=== PATIENT | female | born 1940 | race Caucasian/White ===

== ENCOUNTER 2020-05-20 07:11 | Emergency (ER) | payer OTHER ==
[2020-05-20 07:29] VITALS: BP 128/80; PULSE 90; TEMP 98.9; BMI 29.6
[2020-05-20] MEDS ORDERED: ONDANSETRON 4 MG TABLET PO ONE ×2 (07:59→08:00)
== END 2020-05-20 08:58 | disposition home or self-care (01) ==
LOC: JER 07:11
DX: R11.0 Nausea (principal); M79.10 Myalgia, unspecified site; Z20.822 Contact with and (suspected) exposure to COVID-19
CPT/HCPCS: 71046-TC-FY; 99284-25; C9803; U0003

== ENCOUNTER 2020-05-22 07:42 | Inpatient (IN) | payer OTHER ==
[2020-05-22] MEDS ORDERED: ACETAMINOPHEN INJECTION 100 ML IVPB ONE (08:06)
[2020-05-22] MEDS ORDERED: DEXAMETHASONE SOD PHOSPHATE 4 MG/1 ML VIAL IVPUSH ONE ×2 (08:29→13:28)
[2020-05-22] MEDS ORDERED: ONDANSETRON 4 MG/2 ML VIAL IVPUSH ONE (08:29)
[2020-05-22] MEDS ORDERED: CEFTRIAXONE 1,000 MG in DEXTROSE 5%-WATER - 50 ML IVPB ONE (08:40)
[2020-05-22] MEDS ORDERED: AZITHROMYCIN IVPB 500 MG in DEXTROSE 5%-WATER - 250 ML IVPB ONE (08:40)
[2020-05-22] MEDS ORDERED: ONDANSETRON 4 MG/2 ML VIAL ONE (08:45)
[2020-05-22] MEDS ORDERED: DEXAMETHASONE SOD PHOSPHATE 4 MG/1 ML VIAL ONE ×2 (08:45→15:15)
[2020-05-22] MEDS ORDERED: EPINEPHrine/PF 1 MG/1 ML (1:1,000) AMPULE ONE (08:46)
[2020-05-22] MEDS ORDERED: FAMOTIDINE 20 MG/50 ML IVPB 20 MG/50 ML MG IVPB ONE ×2 (08:49→09:10)
[2020-05-22] MEDS ORDERED: ACETAMINOPHEN 1000 MG/100 ML VIAL (NON FORMULARY) IVPB PRN (08:53)
[2020-05-22 09:09] LABS: BASO % 0.9 % (0-2.0); HEMATOCRIT 41.3 % (32.4-45.2); HEMOGLOBIN 13.6 GM/dL (10.7-15.3); LYMPH % 33.7 % (8-40); MCH 29.1 pg (25.7-33.7); MEAN CELL VOLUME 88.4 fl (80-96); MEAN PLT VOLUME 9.4 fl (7.5-11.1); MONO % 13.8 % (3.8-10.2); NEUT % 51.6 % (42.8-82.8); PLATELET COUNT 142 K/MM3 (134-434); RBC 4.67 M/mm3 (3.60-5.2); RDW 14.8 % (11.6-15.6); WHITE BLOOD COUNT 2.8 K/mm3 (4.0-10.0)
[2020-05-22] MEDS ORDERED: AZITHROMYCIN IVPB 500 MG/250 ML BAG IVPB ONE (09:09)
[2020-05-22 09:17] LABS: INR 1.21 (0.83-1.09); PROTHROMBIN TIME (PATIENT) 14.6 SEC (9.7-13.0)
[2020-05-22 09:19] LABS: ACTIVATED PTT 35.9 SECONDS (25.2-36.5)
[2020-05-22 09:29] LABS: CHLORIDE 103 mmol/L (98-107); POTASSIUM 4.3 mmol/L (3.5-5.1); SODIUM 134 mmol/L (136-145)
[2020-05-22 09:31] LABS: CALCIUM 8.3 mg/dL (8.5-10.1)
[2020-05-22 09:32] LABS: ALBUMIN 3.4 g/dl (3.4-5.0); ANION GAP 6 MMOL/L (8-16); BLOOD UREA NITROGEN 16.2 mg/dL (7-18); CO2 25 mmol/L (21-32); GLUCOSE,RANDOM 113 mg/dL (74-106)
[2020-05-22 09:35] LABS: CREATININE 1.6 mg/dL (0.55-1.3); SGOT/AST 33 U/L (15-37); SGPT/ALT 18 U/L (13-61)
[2020-05-22 09:36] LABS: BILIRUBIN,TOTAL 0.5 mg/dL (0.2-1)
[2020-05-22 09:37] LABS: TOT PROT 7.9 g/dl (6.4-8.2)
[2020-05-22 09:38] LABS: ALK PHOS 50 U/L (45-117)
[2020-05-22] MEDS ORDERED: LACTATED RINGERS SOLUTION 1000 ML INFUS.BAG IV STA (09:42)
[2020-05-22 11:28] LABS: LDH 388 U/L (84-246)
[2020-05-22] MEDS ORDERED: ACETAMINOPHEN 325 MG TABLET (FP) PO PRN (13:26)
[2020-05-22] MEDS ORDERED: REMDESIVIR 200 MG in SODIUM CHLORIDE 210 ML IVPB ONE (15:00)
[2020-05-22 18:42] LABS: URINE APPEARANCE CLEAR; URINE BILIRUBIN NEGATIVE (NEGATIVE); URINE COLOR YELLOW; URINE GLUCOSE (UA) NEGATIVE (NEGATIVE); URINE KETONE NEGATIVE (NEGATIVE); URINE LEUK ESTERASE NEGATIVE (NEGATIVE); URINE NITRITE NEGATIVE (NEGATIVE); URINE PROTEIN TRACE (NEGATIVE); URINE UROBILINOGEN 0.2 mg/dL (0.2-1.0)
[2020-05-22] MEDS ORDERED: HEPARIN NA (PORCINE) 5,000 UNITS/ML 1ML VIAL ONE (18:57)
[2020-05-22] MEDS: HEPARIN NA (PORCINE) 5,000 UNITS/ML 1ML VIAL SQ SCH (18:59)
[2020-05-23] MEDS: HEPARIN NA (PORCINE) 5,000 UNITS/ML 1ML VIAL SQ SCH ×3 (02:12→18:26)
[2020-05-23 03:26] VITALS: BMI 28.8
[2020-05-23] MEDS: CHOLECALCIFEROL (VIT D3) 1,000 UNIT (25 MCG) TABLET PO SCH (10:56)
[2020-05-23] MEDS: DEXAMETHASONE 4 MG TABLET (FP) PO SCH (10:56)
[2020-05-23 11:21] LABS: BASO % 0.2 % (0-2.0); HEMOGLOBIN 13.4 GM/dL (10.7-15.3); LYMPH % 20.3 % (8-40); MCH 29.3 pg (25.7-33.7); MCHC 33.6 g/dl (32.0-36.0); MEAN CELL VOLUME 87.2 fl (80-96); MEAN PLT VOLUME 9.5 fl (7.5-11.1); MONO % 6.8 % (3.8-10.2); NEUT % 72.7 % (42.8-82.8); PLATELET COUNT 170 K/MM3 (134-434); RBC 4.58 M/mm3 (3.60-5.2); RDW 14.6 % (11.6-15.6)
[2020-05-23 11:45] LABS: POTASSIUM 4.1 mmol/L (3.5-5.1)
[2020-05-23 11:47] LABS: ALBUMIN 3.1 g/dl (3.4-5.0); CALCIUM 8.5 mg/dL (8.5-10.1)
[2020-05-23 11:48] LABS: BLOOD UREA NITROGEN 19.7 mg/dL (7-18)
[2020-05-23 11:50] LABS: CREATININE 1.2 mg/dL (0.55-1.3)
[2020-05-23 11:51] LABS: PHOSPHOROUS 3.1 mg/dL (2.5-4.9)
[2020-05-23 11:52] LABS: BILIRUBIN,TOTAL 0.4 mg/dL (0.2-1); TOT PROT 7.5 g/dl (6.4-8.2)
[2020-05-23] MEDS: ASCORBIC ACID 500 MG TABLET (FP) PO SCH ×2 (14:23→21:23)
[2020-05-23] MEDS: REMDESIVIR 100 MG in SODIUM CHLORIDE 230 ML IVPB SCH (15:01)
[2020-05-24] MEDS: HEPARIN NA (PORCINE) 5,000 UNITS/ML 1ML VIAL SQ SCH ×3 (01:57→17:39)
[2020-05-24] MEDS: ASCORBIC ACID 500 MG TABLET (FP) PO SCH ×2 (11:13→21:28)
[2020-05-24] MEDS: DEXAMETHASONE 4 MG TABLET (FP) PO SCH (11:13)
[2020-05-24] MEDS: CHOLECALCIFEROL (VIT D3) 1,000 UNIT (25 MCG) TABLET PO SCH (11:13)
[2020-05-24] MEDS: REMDESIVIR 100 MG in SODIUM CHLORIDE 230 ML IVPB SCH (13:41)
[2020-05-24] MEDS: ALPRAZolam 0.25 MG TABLET PO PRN (15:33)
[2020-05-25] MEDS: HEPARIN NA (PORCINE) 5,000 UNITS/ML 1ML VIAL SQ SCH ×3 (01:24→18:05)
[2020-05-25 09:08] LABS: BASO % 0.2 % (0-2.0); HEMATOCRIT 36.7 % (32.4-45.2); HEMOGLOBIN 12.3 GM/dL (10.7-15.3); LYMPH % 17.5 % (8-40); MCH 29.4 pg (25.7-33.7); MCHC 33.5 g/dl (32.0-36.0); MEAN CELL VOLUME 87.5 fl (80-96); MEAN PLT VOLUME 9.5 fl (7.5-11.1); MONO % 16.4 % (3.8-10.2); NEUT % 65.9 % (42.8-82.8); PLATELET COUNT 223 K/MM3 (134-434); RBC 4.19 M/mm3 (3.60-5.2); WHITE BLOOD COUNT 3.5 K/mm3 (4.0-10.0)
[2020-05-25 09:45] LABS: ALBUMIN 2.7 g/dl (3.4-5.0); BILIRUBIN,TOTAL 0.4 mg/dL (0.2-1); BLOOD UREA NITROGEN 22.5 mg/dL (7-18); CALCIUM 8.1 mg/dL (8.5-10.1); CREATININE 0.8 mg/dL (0.55-1.3); POTASSIUM 4.4 mmol/L (3.5-5.1); TOT PROT 6.7 g/dl (6.4-8.2)
[2020-05-25] MEDS: CHOLECALCIFEROL (VIT D3) 1,000 UNIT (25 MCG) TABLET PO SCH (10:22)
[2020-05-25] MEDS: DEXAMETHASONE 4 MG TABLET (FP) PO SCH (10:22)
[2020-05-25] MEDS: REMDESIVIR 100 MG in SODIUM CHLORIDE 230 ML IVPB SCH (10:22)
[2020-05-25] MEDS: ALPRAZolam 0.25 MG TABLET PO PRN (10:22)
[2020-05-25] MEDS: ASCORBIC ACID 500 MG TABLET (FP) PO SCH ×2 (10:22→22:15)
[2020-05-25] MEDS ORDERED: ACETAMINOPHEN 500 MG TABLET (FP) PO PRN (16:25)
[2020-05-25] MEDS: FAMOTIDINE 20 MG TABLET PO SCH (22:15)
[2020-05-26] MEDS: HEPARIN NA (PORCINE) 5,000 UNITS/ML 1ML VIAL SQ SCH ×2 (01:55→09:21)
[2020-05-26] MEDS: CHOLECALCIFEROL (VIT D3) 1,000 UNIT (25 MCG) TABLET PO SCH (09:12)
[2020-05-26] MEDS: DEXAMETHASONE 4 MG TABLET (FP) PO SCH (09:13)
[2020-05-26] MEDS: ASCORBIC ACID 500 MG TABLET (FP) PO SCH (09:14)
[2020-05-26] MEDS: FAMOTIDINE 20 MG TABLET PO SCH (09:14)
[2020-05-26] MEDS: ALPRAZolam 0.25 MG TABLET PO PRN (09:15)
[2020-05-26] MEDS: REMDESIVIR 100 MG in SODIUM CHLORIDE 230 ML IVPB SCH (11:11)
[2020-05-26 16:12] VITALS: BP 145/79; PULSE 87; TEMP 98
== END 2020-05-26 16:47 | disposition home health service (06) | DRG 177 ==
LOC: JER 07:42 → JERBED 12:50 → J5S 20:17
PROVIDERS: ADMIT Internal Medicine; ATTEND Internal Medicine
PROC: XW13325 Transfusion of Convalescent Plasma (Nonautologous) into Peripheral Vein, Percutaneous Approach, New Technology Group 5 (ICD-10-PCS; principal; 2020-05-23)
PROC: XW033E5 Introduction of Remdesivir Anti-infective into Peripheral Vein, Percutaneous Approach, New Technology Group 5 (ICD-10-PCS; 2020-05-23)
DX: U07.1 COVID-19 (principal); J12.82 Pneumonia due to coronavirus disease 2019; A08.39 Other viral enteritis; I10 Essential (primary) hypertension; F41.9 Anxiety disorder, unspecified; I95.9 Hypotension, unspecified
CPT/HCPCS: 36415; 36430; 71045-TC-FY; 80053; 81003; 82728; 83605; 83615; 83735; 84100; 84484; 85025; 85379; 85610; 85730; 86140; 86769; 86850; 86900; 86901; 87040; 87086; 87804; 93005; 93010; 99285-25; C9399; C9803; J0131; J1644; P9017; U0003

== ENCOUNTER 2020-12-14 21:58 | Emergency (ER) | payer OTHER ==
[2020-12-14 22:08] VITALS: BP 153/83; PULSE 78; TEMP 98; BMI 28.8
== END 2020-12-15 01:01 | disposition home or self-care (01) ==
LOC: JER 21:58
DX: S60.211A Contusion of right wrist, initial encounter (principal); Y99.9 Unspecified external cause status
CPT/HCPCS: 99281-25

== ENCOUNTER 2024-02-24 17:34 | Inpatient (IN) | payer OTHER ==
[2024-02-24] MEDS ORDERED: ACETAMINOPHEN INJECTION 100 ML ONE (18:30)
[2024-02-24] MEDS: ACETAMINOPHEN 1000 MG/100 ML BAG IVPB ONE (18:42)
[2024-02-24 18:47] LABS: HEMATOCRIT 39.5 % (32.4-45.2); HEMOGLOBIN 13.3 GM/dL (10.7-15.3); MCH 30.2 pg (25.7-33.7); MCHC 33.5 g/dl (32.0-36.0); MEAN CELL VOLUME 90.1 fl (80-96); MEAN PLT VOLUME 8.6 fl (7.5-11.1); PLATELET COUNT 119 10^3/uL (134-434); RBC 4.39 M/mm3 (3.60-5.2); RDW 14.8 % (11.6-15.6); WHITE BLOOD COUNT 6.5 K/mm3 (4.0-10.0)
[2024-02-24 19:09] LABS: INR 1.13 (0.83-1.09); PROTHROMBIN TIME (PATIENT) 12.9 SEC (9.7-13.0)
[2024-02-24 19:12] LABS: ACTIVATED PTT 39.3 SECONDS (25.2-36.5)
[2024-02-24 19:18] LABS: ALBUMIN 3.3 g/dl (3.4-5.0); BLOOD UREA NITROGEN 20.4 mg/dL (7-18)
[2024-02-24 19:21] LABS: CREATININE 1.6 mg/dL (0.55-1.3)
[2024-02-24 19:22] LABS: BILIRUBIN,TOTAL 0.7 mg/dL (0.2-1); TOT PROT 7.2 g/dl (6.4-8.2)
[2024-02-24] MEDS ORDERED: CEFTRIAXONE 1 G/50 ML PREMIX 50 ML IVPB ONE (19:24)
[2024-02-24] MEDS ORDERED: AZITHROMYCIN IVPB 500 MG/250 ML BAG IVPB ONE (19:24)
[2024-02-24 20:06] LABS: ANISOCYTOSIS 0; MACROCYTOSIS 0
[2024-02-24] MEDS ORDERED: guaiFENesin 200 MG/10 ML 10 ML UNIT-DOSE CUPS ONE (20:11)
[2024-02-24] MEDS: AZITHROMYCIN IVPB 500 MG in DEXTROSE 5%-WATER - 250 ML IVPB ONE (20:19)
[2024-02-24] MEDS: guaiFENesin 200 MG/10 ML 10 ML UNIT-DOSE CUPS PO ONE (20:20)
[2024-02-24] MEDS: SODIUM CHLORIDE 0.9% 500 ML INFUS.BAG IV ONE (20:20)
[2024-02-24] MEDS ORDERED: HEPARIN NA (PORCINE) 5,000 UNITS/ML 1ML VIAL ONE (21:38)
[2024-02-24] MEDS: SODIUM CHLORIDE 1,000 ML IV SCH (21:47)
[2024-02-24] MEDS: HEPARIN NA (PORCINE) 5,000 UNITS/ML 1ML VIAL SQ SCH (22:15)
[2024-02-25] MEDS: guaiFENesin 200 MG/10 ML 10 ML UNIT-DOSE CUPS PO PRN (01:55)
[2024-02-25 02:12] VITALS: BMI 28.3
[2024-02-25 03:54] LABS: PH,URINE 5.5 (5.0-8.0); URINE APPEARANCE CLEAR; URINE BILIRUBIN NEGATIVE (NEGATIVE); URINE COLOR YELLOW; URINE GLUCOSE (UA) NEGATIVE (NEGATIVE); URINE KETONE NEGATIVE (NEGATIVE); URINE LEUK ESTERASE NEGATIVE (NEGATIVE); URINE NITRITE NEGATIVE (NEGATIVE); URINE PROTEIN TRACE (NEGATIVE); URINE UROBILINOGEN 0.2 mg/dL (0.2-1.0)
[2024-02-25 05:01] LABS: HYALINE CASTS 3.01 /uL (0-3.1); URINE BACTERIA 14.1 /uL (0-1359); URINE RBC 31.5 /uL (0-23.9); URINE WBC 28.3 /uL (0-25.8)
[2024-02-25] MEDS: ACETAMINOPHEN 1000 MG/100 ML BAG IVPB PRN (07:07)
[2024-02-25 09:16] LABS: HEMATOCRIT 36.8 % (32.4-45.2); MCH 29.7 pg (25.7-33.7); MCHC 32.7 g/dl (32.0-36.0); MEAN CELL VOLUME 90.9 fl (80-96); MEAN PLT VOLUME 9.4 fl (7.5-11.1); PLATELET COUNT 113 10^3/uL (134-434); RBC 4.06 M/mm3 (3.60-5.2); RDW 15.1 % (11.6-15.6); WHITE BLOOD COUNT 5.6 K/mm3 (4.0-10.0)
[2024-02-25 09:26] LABS: POTASSIUM 3.9 mmol/L (3.5-5.1)
[2024-02-25 09:28] LABS: CALCIUM 8.2 mg/dL (8.5-10.1)
[2024-02-25 09:29] LABS: BLOOD UREA NITROGEN 16.6 mg/dL (7-18); MAGNESIUM 1.9 mg/dL (1.8-2.4)
[2024-02-25 09:34] LABS: CREATININE 1.2 mg/dL (0.55-1.3)
[2024-02-25] MEDS: CEFTRIAXONE 1 G/50 ML PREMIX 50 ML IVPB SCH (09:53)
[2024-02-25] MEDS: AZITHROMYCIN IVPB 500 MG/250 ML BAG IVPB SCH (09:53)
[2024-02-25] MEDS: NAPH,MB-DB/K PH,MBDB POWDER PACKET PO ONE (16:45)
[2024-02-25] MEDS: ALBUTEROL SO4 HFA INHALER IH PRN (21:19)
[2024-02-25] MEDS: ALPRAZolam 0.25 MG TABLET PO PRN (21:19)
[2024-02-25] MEDS: ATENOLOL 50 MG TABLET (FP) PO SCH (21:19)
[2024-02-25] MEDS ORDERED: FAMOTIDINE 20 MG TABLET PO SCH (22:00)
[2024-02-26] MEDS: ALBUTEROL SO4 0.083% IH SOL 2.5 MG/3 ML VIAL.NEB. NEB PRN (05:06)
[2024-02-26 08:43] LABS: HEMATOCRIT 33.5 % (32.4-45.2); HEMOGLOBIN 10.9 GM/dL (10.7-15.3); MCH 29.7 pg (25.7-33.7); MCHC 32.6 g/dl (32.0-36.0); MEAN CELL VOLUME 91.2 fl (80-96); MEAN PLT VOLUME 9.5 fl (7.5-11.1); PLATELET COUNT 123 10^3/uL (134-434); RBC 3.68 M/mm3 (3.60-5.2); RDW 15.6 % (11.6-15.6); WHITE BLOOD COUNT 4.6 K/mm3 (4.0-10.0)
[2024-02-26 09:02] LABS: POTASSIUM 3.6 mmol/L (3.5-5.1)
[2024-02-26 09:04] LABS: ALBUMIN 2.7 g/dl (3.4-5.0); CALCIUM 7.8 mg/dL (8.5-10.1)
[2024-02-26 09:05] LABS: BLOOD UREA NITROGEN 9.7 mg/dL (7-18)
[2024-02-26 09:08] LABS: CREATININE 0.8 mg/dL (0.55-1.3); PHOSPHOROUS 1.7 mg/dL (2.5-4.9)
[2024-02-26 09:09] LABS: BILIRUBIN,TOTAL 0.7 mg/dL (0.2-1); TOT PROT 6.1 g/dl (6.4-8.2)
[2024-02-26] MEDS: LISINOPRIL 10 MG TABLET PO SCH (09:25)
[2024-02-26] MEDS: FAMOTIDINE 20 MG TABLET PO SCH (09:25)
[2024-02-26] MEDS: amLODIPine BESYLATE 10 MG TABLET (FP) PO SCH (09:26)
[2024-02-26] MEDS ORDERED: ACETAMINOPHEN 325 MG TABLET (FP) PO PRN (16:52)
[2024-02-26] MEDS: ACETAMINOPHEN 325 MG TABLET (FP) PO PRN (16:58)
[2024-02-27] MEDS: NAPH,MB-DB/K PH,MBDB POWDER PACKET PO SCH (21:20)
[2024-02-27] MEDS: ALPRAZolam 0.25 MG TABLET PO PRN (23:58)
[2024-02-28 08:33] LABS: HEMATOCRIT 33.6 % (32.4-45.2); HEMOGLOBIN 10.8 GM/dL (10.7-15.3); MCH 29.3 pg (25.7-33.7); MCHC 32.2 g/dl (32.0-36.0); MEAN CELL VOLUME 91.2 fl (80-96); MEAN PLT VOLUME 9.3 fl (7.5-11.1); PLATELET COUNT 242 10^3/uL (134-434); RBC 3.68 M/mm3 (3.60-5.2); RDW 15.3 % (11.6-15.6); WHITE BLOOD COUNT 4.2 K/mm3 (4.0-10.0)
[2024-02-28 08:44] LABS: POTASSIUM 3.9 mmol/L (3.5-5.1)
[2024-02-28 08:58] LABS: CALCIUM 8.6 mg/dL (8.5-10.1)
[2024-02-28 08:59] LABS: ALBUMIN 2.9 g/dl (3.4-5.0)
[2024-02-28 09:00] LABS: BLOOD UREA NITROGEN 6.2 mg/dL (7-18)
[2024-02-28 09:04] LABS: BILIRUBIN,TOTAL 0.6 mg/dL (0.2-1); CREATININE 0.7 mg/dL (0.55-1.3); TOT PROT 6.5 g/dl (6.4-8.2)
[2024-02-28 10:03] LABS: ANISOCYTOSIS 0; HELMET CELLS 0; HOWELL-JOLLY BODIES 0; MACROCYTOSIS 0; OVALOCYTE 0; ROULEAU 0; SICKELED CELLS 0; TARGET CELLS 0; TEAR DROP CELLS 0; TOXIC GRANULATION 0
[2024-02-28] MEDS: ALBUTEROL SO4 0.083% IH SOL 2.5 MG/3 ML VIAL.NEB. NEB SCH (17:30)
[2024-02-29 08:38] LABS: BASO % 0.6 % (0-2.0); EOS % 1.6 % (0-4.5); HEMATOCRIT 35.6 % (32.4-45.2); HEMOGLOBIN 11.5 GM/dL (10.7-15.3); LYMPH % 33.9 % (8-40); MCH 29.5 pg (25.7-33.7); MCHC 32.4 g/dl (32.0-36.0); MEAN PLT VOLUME 8.7 fl (7.5-11.1); MONO % 12.3 % (3.8-10.2); NEUT % 51.6 % (42.8-82.8); PLATELET COUNT 344 10^3/uL (134-434); RBC 3.91 M/mm3 (3.60-5.2); RDW 15.3 % (11.6-15.6); WHITE BLOOD COUNT 4.6 K/mm3 (4.0-10.0)
[2024-02-29 08:54] LABS: POTASSIUM 4.3 mmol/L (3.5-5.1)
[2024-02-29 08:59] LABS: BLOOD UREA NITROGEN 7.7 mg/dL (7-18); MAGNESIUM 2.1 mg/dL (1.8-2.4)
[2024-02-29 09:02] LABS: CREATININE 0.8 mg/dL (0.55-1.3)
[2024-02-29 09:03] LABS: BILIRUBIN,TOTAL 0.6 mg/dL (0.2-1); TOT PROT 7.1 g/dl (6.4-8.2)
[2024-02-29 09:53] LABS: ANISOCYTOSIS 0; MACROCYTOSIS 0
[2024-03-01 09:49] LABS: HEMATOCRIT 34.3 % (32.4-45.2); HEMOGLOBIN 11.4 GM/dL (10.7-15.3); MCH 29.8 pg (25.7-33.7); MCHC 33.4 g/dl (32.0-36.0); MEAN CELL VOLUME 89.3 fl (80-96); PLATELET COUNT 354 10^3/uL (134-434); RBC 3.84 M/mm3 (3.60-5.2); RDW 15.3 % (11.6-15.6)
[2024-03-01 10:02] LABS: POTASSIUM 4.7 mmol/L (3.5-5.1)
[2024-03-01 10:24] LABS: CALCIUM 9.4 mg/dL (8.5-10.1)
[2024-03-01 10:25] LABS: ALBUMIN 3.1 g/dl (3.4-5.0); BLOOD UREA NITROGEN 8.9 mg/dL (7-18); MAGNESIUM 2.2 mg/dL (1.8-2.4)
[2024-03-01 10:27] LABS: CREATININE 0.8 mg/dL (0.55-1.3); PHOSPHOROUS 4.1 mg/dL (2.5-4.9)
[2024-03-01 10:29] LABS: BILIRUBIN,TOTAL 0.6 mg/dL (0.2-1); TOT PROT 6.9 g/dl (6.4-8.2)
[2024-03-01 11:03] LABS: ANISOCYTOSIS 0; MACROCYTOSIS 1+
[2024-03-02 11:04] LABS: POTASSIUM 4.8 mmol/L (3.5-5.1)
[2024-03-02 11:08] LABS: CALCIUM 9.2 mg/dL (8.5-10.1)
[2024-03-02 11:09] LABS: HEMATOCRIT 36.4 % (32.4-45.2); HEMOGLOBIN 11.9 GM/dL (10.7-15.3); MCH 29.6 pg (25.7-33.7); MCHC 32.6 g/dl (32.0-36.0); MEAN CELL VOLUME 90.9 fl (80-96); MEAN PLT VOLUME 7.8 fl (7.5-11.1); PLATELET COUNT 414 10^3/uL (134-434); RBC 4.01 M/mm3 (3.60-5.2); RDW 15.4 % (11.6-15.6); WHITE BLOOD COUNT 4.7 K/mm3 (4.0-10.0)
[2024-03-02 11:10] LABS: ALBUMIN 3.3 g/dl (3.4-5.0); MAGNESIUM 2.2 mg/dL (1.8-2.4)
[2024-03-02 11:12] LABS: CREATININE 0.9 mg/dL (0.55-1.3)
[2024-03-02 11:14] LABS: BILIRUBIN,TOTAL 0.4 mg/dL (0.2-1); TOT PROT 7.6 g/dl (6.4-8.2)
[2024-03-02 13:52] LABS: ANISOCYTOSIS 0; HELMET CELLS 0; HOWELL-JOLLY BODIES 0; MACROCYTOSIS 0; OVALOCYTE 0; ROULEAU 0; SICKELED CELLS 0; TARGET CELLS 0; TEAR DROP CELLS 0; TOXIC GRANULATION 0
[2024-03-03 10:24] LABS: HEMATOCRIT 33.7 % (32.4-45.2); HEMOGLOBIN 11.2 GM/dL (10.7-15.3); MCH 30.2 pg (25.7-33.7); MCHC 33.2 g/dl (32.0-36.0); MEAN CELL VOLUME 90.8 fl (80-96); MEAN PLT VOLUME 7.8 fl (7.5-11.1); PLATELET COUNT 391 10^3/uL (134-434); RBC 3.71 M/mm3 (3.60-5.2); RDW 15.1 % (11.6-15.6); WHITE BLOOD COUNT 4.9 K/mm3 (4.0-10.0)
[2024-03-03 10:38] LABS: POTASSIUM 5.1 mmol/L (3.5-5.1)
[2024-03-03 10:45] LABS: ALBUMIN 3.1 g/dl (3.4-5.0); BLOOD UREA NITROGEN 11.7 mg/dL (7-18); MAGNESIUM 2.3 mg/dL (1.8-2.4)
[2024-03-03 10:49] LABS: BILIRUBIN,TOTAL 0.4 mg/dL (0.2-1)
[2024-03-03 13:15] LABS: ANISOCYTOSIS 0; HELMET CELLS 0; HOWELL-JOLLY BODIES 0; MACROCYTOSIS 0; OVALOCYTE 0; ROULEAU 0; SICKELED CELLS 0; TARGET CELLS 0; TEAR DROP CELLS 0; TOXIC GRANULATION 0
[2024-03-03 15:08] VITALS: RESP 18
[2024-03-04 06:15] VITALS: BP 117/72; PULSE 69; TEMP 97.9
== END 2024-03-04 13:35 | disposition home or self-care (01) | DRG 871 ==
LOC: JER 17:34 → JERBED 18:30 → J8W 02-25 01:04
PROVIDERS: ATTEND Nurse Practitioner Family
DX: A41.89 Other specified sepsis (principal); J18.9 Pneumonia, unspecified organism; J96.01 Acute respiratory failure with hypoxia; N17.9 Acute kidney failure, unspecified; I10 Essential (primary) hypertension; E78.5 Hyperlipidemia, unspecified; E86.0 Dehydration; F41.9 Anxiety disorder, unspecified; R31.29 Other microscopic hematuria
CPT/HCPCS: 0241U-QW; 36415; 71045-TC-FY; 71046-TC-FY; 80048; 80053; 81003; 83735; 84100; 84484; 85025; 85027; 85610; 85730; 86850; 86900; 86901; 87040; 87899; 93005; 93010; 94640; 94761; 97116-GP; 97162-GP; 99285-25; J0131; J1644